=== PATIENT | male | born 1995 | race Caucasian/White ===

== ENCOUNTER 2019-03-31 13:55 | Emergency (ER) | payer OTHER, BC ==
[2019-03-31] MEDS ORDERED: Diphtheria,Pertussis(Acell),Tetanus Vaccine 0.5 ML Syringe IM ONE (14:14)
--- NOTE | 2019-03-31 14:16 | EDM.PDOC ---
ED HPI GENERAL MEDICAL PROBLEM - General Chief Complaint: Upper Extremity Injury/Pain Stated Complaint: RT FINGER INJURY Time Seen by Provider: 03/31/19 13:57 Source of Information: Reports: Patient History Limitations: Reports: No Limitations - History of Present Illness INITIAL COMMENTS - FREE TEXT/NARRATIVE: History of present illness: []Patient crushed his right ring and small finger tips. He is not up-to-date with tetanus. Review of systems: As per history of present illness and below otherwise all systems reviewed and negative. Past medical history: As per history of present illness and as reviewed below otherwise noncontributory. Surgical history: As per history of present illness and as reviewed below otherwise noncontributory. Social history: No reported history of drug or alcohol abuse. Family history: As per history of present illness and as reviewed below otherwise noncontributory. Physical exam: General: Well developed, well nourished in NAD HEENT: Atraumatic, normocephalic, pupils reactive, negative for conjunctival pallor or scleral icterus, mucous membranes moist, throat clear, neck supple, nontender, trachea midline. Lungs: Clear to auscultation, breath sounds equal bilaterally, chest nontender. Heart: S1S2, regular, negative for clicks, rubs, or JVD. Abdomen: NABS, Soft, nondistended, nontender. Negative for masses or hepatosplenomegaly. Negative for costovertebral tenderness. Pelvis: Stable nontender. Genitourinary: Deferred. Rectal: Deferred. Extremities: Right ring and small finger tips with distal small crush injuries with no active bleeding, negative for cords or calf pain. Neurovascular unremarkable. Neuro: Awake, alert, oriented. Cranial nerves II through XII unremarkable. Cerebellum unremarkable. Motor and sensory unremarkable throughout. Exam nonfocal. Skin:warm and dry Diagnostics: X-ray right hand no fractures Therapeutics: he declined pain meds ED Course: Stable Impression: Crush injury right hand small and ring fingertips Prescriptions: None Plan: Follow-up with primary care as needed wound clean Tylenol Motrin for pain. Definitive disposition and diagnosis as appropriate pending reevaluation and review of above. right hand Pain Score (Numeric/FACES): 3 - Related Data Allergies Allergy/AdvReac Type Severity Reaction Status Date / Time No Known Allergies Allergy Verified 06/28/15 08:07 Home Meds: Home Meds . [No Known Home Meds] 03/31/19 [History] Review of Systems - Review of Systems Review Of Systems: ROS reveals no pertinent complaints other than HPI. ED EXAM, GENERAL - Physical Exam Exam: See Below (See history of present illness) Course - Vital Signs Last Recorded V/S: Last Vital Signs Temp 96.7 F 03/31/19 14:12 Pulse 77 03/31/19 14:12 Resp 18 03/31/19 14:12 BP 125/68 03/31/19 14:12 Pulse Ox 97 03/31/19 14:12 - Orders/Labs/Meds Orders: Active Orders 24 hr Category Date Time Status Vaccines to be Administered [RC] PER UNIT ROUTINE Care 03/31/19 14:14 Active Hand Comp Min 3V Rt [CR] Stat Exams 03/31/19 14:13 Taken Meds: Medications Discontinued Medications Generic Name Dose Route Start Last Admin Trade Name Freq PRN Reason Stop Dose Admin Diphtheria/Tetanus/Acell Pertussis 0.5 ml 03/31/19 14:14 Adacel IM 03/31/19 14:15 .ONCE ONE Departure - Departure Time of Disposition: 14:31 Disposition: Home, Self-Care 01 Condition: Good Clinical Impression: Hand crush injury Qualifiers: Encounter type: initial encounter Laterality: right Qualified Code(s): S67.21XA - Crushing injury of right hand, initial encounter - Discharge Information *PRESCRIPTION DRUG MONITORING PROGRAM REVIEWED*: No *COPY OF PRESCRIPTION DRUG MONITORING REPORT IN PATIENT KAMILA: No Referrals: PCP,Unknown [Primary Care Provider] - Forms: ED Department Discharge Additional Instructions: The following information is given to patients seen in the emergency department who are being discharged to home. This information is to outline your options for follow-up care. We provide all patients seen in our emergency department with a follow-up referral. The need for follow-up, as well as the timing and circumstances, are variable depending upon the specifics of your emergency department visit. If you don't have a primary care physician on staff, we will provide you with a referral. We always advise you to contact your personal physician following an emergency department visit to inform them of the circumstance of the visit and for follow-up with them and/or the need for any referrals to a consulting specialist. The emergency department will also refer you to a specialist when appropriate. This referral assures that you have the opportunity for follow-up care with a specialist. All of these measure are taken in an effort to provide you with optimal care, which includes your follow-up. Under all circumstances we always encourage you to contact your private physician who remains a resource for coordinating your care. When calling for follow-up care, please make the office aware that this follow-up is from your recent emergency room visit. If for any reason you are refused follow-up, please contact the [facility] Emergency Department at and asked to speak to the emergency department charge nurse. Keep wound clean, ibuprofen or Tylenol for pain, follow-up with primary care and her hand surgery if needed [facility] [address] [place] [address] PH:[phone] fax:[phone] - My Orders Last 24 Hours: My Active Orders 03/31/19 14:13 Hand Comp Min 3V Rt [CR] Stat 03/31/19 14:14 Vaccines to be Administered [RC] PER UNIT ROUTINE - Assessment/Plan Last 24 Hours: My Active Orders 03/31/19 14:13 Hand Comp Min 3V Rt [CR] Stat 03/31/19 14:14 Vaccines to be Administered [RC] PER UNIT ROUTINE
--- NOTE | 2019-03-31 14:59 | CR ---
EXAMINATION: Right hand HISTORY: Compression COMPARISON: None TECHNIQUE: 3 views FINDINGS/IMPRESSION: There is no acute osseous abnormality, dislocation, or fracture. Bone mineralization and joint spaces are preserved. Mild soft tissue swelling noted along the lateral aspect of the hand.
== END 2019-03-31 14:59 | disposition home or self-care (01) ==
LOC: MW.ED 13:55
DX: S67.21XA Crushing injury of right hand, initial encounter (principal); Z23 Encounter for immunization; W23.1XXA Caught, crushed, jammed, or pinched between stationary objects, initial encounter
CPT/HCPCS: 73130-26-RT; 73130-RT; 90471; 90715; 99282; 99283-25

== ENCOUNTER 2019-04-23 10:14 | Day surgery (SDC) | payer BC ==
[~2019-04-23 10:14] MED LIST: Lactated Ringers 1,000 ML IV SCH
--- NOTE | 2019-04-23 11:07 | PCM.PREANE ---
Preanesthetic Assessment - Anesthesia/Transfusion/Family Hx Anesthesia History: Prior Anesthesia Without Reaction Family History of Anesthesia Reaction: No Transfusion History: No Prior Transfusion(s) Intubation History: Unknown - Review of Systems General: No Symptoms Pulmonary: No Symptoms Cardiovascular: No Symptoms Gastrointestinal: Other (major acid reflux) Neurological: No Symptoms Other: Reports: None - Physical Assessment Height: 6 ft Weight: 106.594 kg ASA Class: 2 Mental Status: Alert & Oriented x3 Airway Class: Mallampati = 2 Dentition: Reports: Normal Dentition, [place](s) (x2 upper front) Thyro-Mental Finger Breadths: 3 Mouth Opening Finger Breadths: 3 ROM/Head Extension: Full Lungs: Clear to Auscultation, Normal Respiratory Effort Cardiovascular: Regular Rate, Regular Rhythm - Allergies Allergies/Adverse Reactions: Allergies Allergy/AdvReac Type Severity Reaction Status Date / Time No Known Allergies Allergy Verified 04/21/19 08:02 - Blood Blood Available: No - Anesthesia Plan Pre-Op Medication Ordered: None - Acknowledgements Anesthesia Type Planned: MAC Pt an Appropriate Candidate for the Planned Anesthesia: Yes Alternatives and Risks of Anesthesia Discussed w Pt/Guardian: Yes Pt/Guardian Understands and Agrees with Anesthesia Plan: Yes PreAnesthesia Questionnaire HEENT History: Reports: None Cardiovascular History: Reports: None Respiratory History: Reports: None Gastrointestinal History: Reports: GERD Genitourinary History: Reports: None Musculoskeletal History: Reports: None Neurological History: Reports: Concussion Psychiatric History: Reports: None Endocrine/Metabolic History: Reports: Obesity/BMI 30+ Hematologic History: Reports: None, Other (See Below) (recent thrombocytopenia 2 -3 weeks ago) Immunologic History: Reports: None Oncologic (Cancer) History: Reports: None Dermatologic History: Reports: None - Past Surgical History Head Surgeries/Procedures: Reports: None HEENT Surgical History: Reports: Oral Surgery, Tonsillectomy Cardiovascular Surgical History: Reports: None Respiratory Surgical History: Reports: None GI Surgical History: Reports: None Male Surgical History: Reports: None Endocrine Surgical History: Reports: None Neurological Surgical History: Reports: None Musculoskeletal Surgical History: Reports: None Oncologic Surgical History: Reports: None Dermatological Surgical History: Reports: None - SUBSTANCE USE Smoking Status *Q: Never Smoker Tobacco Use Within Last Twelve Months: No Recreational Drug Use History: No - HOME MEDS Home Medications: Home Meds Pantoprazole Sodium 40 mg PO DAILY 04/21/19 [History] - CURRENT (IN HOUSE) MEDS Current Meds: Current Medications Lactated Ringer's (Ringers, Lactated) 1,000 mls @ 125 mls/hr IV ASDIRECTED [facility] Last Admin: 04/23/19 10:48 Dose: 125 mls/hr
[2019-04-23] MEDS ORDERED: Midazolam 1 MG/ML 2 ML SDV ONE (12:06)
[2019-04-23] MEDS ORDERED: Propofol 200 MG/20 ML SDV ONE (12:06)
[2019-04-23] MEDS ORDERED: fentaNYL 100 MCG/2 ML SDV ONE (12:06)
--- NOTE | 2019-04-23 12:46 | PCM.OPNOTE ---
- General Post-Op/Procedure Note Date of Surgery/Procedure: 04/23/19 Operative Procedure(s): egd w bx Findings: see dict [id number] Pre Op Diagnosis: gerd Post-Op Diagnosis: Same Anesthesia Technique: Moderate Sedation Primary Surgeon: Micheal Deleon Pathology: sent Complications: None Condition: Good
--- NOTE | 2019-04-23 16:54 | OR ---
SURGEON: Micheal Deleon MD DATE OF PROCEDURE: 04/23/2019 PREOPERATIVE DIAGNOSIS: Gastroesophageal reflux disease. POSTOPERATIVE DIAGNOSIS: Gastroesophageal reflux disease. PROCEDURE PERFORMED: EGD with biopsy. PRIMARY SURGEON: Micheal Deleon MD. PROCEDURE IN DETAIL: EGD: The patient was taken to the endoscopy room, and with the SAUSAGE MACHINE OPERATOR, Diprivan was administered. A well-lubricated EGD scope was gently inserted through the oropharynx, down the esophagus, passing through the gastroesophageal junction, into the stomach. The mucosa was examined upon the passage. Any etiology will be noted. Once in the stomach, we continued to advance to the distal antrum, passed through the pylorus into the second portion of the duodenum. Again, the mucosa was examined for any abnormality and etiology. The scope was then retrieved back to the stomach and then retroflexed to look at the fundus of the stomach. If a biopsy was indicated, we will biopsy the antrum, body, and gastroesophageal junction. The air will be sucked out while the scope is retrieved to reduce the patient's discomfort. The patient tolerated the procedure well. There were no intraoperative complications. Dr. Deleon was present through the whole procedure. Prior to surgery, a time-out had been called, the patient identified, procedure identified and antibiotic administered. FINDINGS: 1. The patient is easily sedated with SAUSAGE MACHINE OPERATOR and Diprivan. The patient is soundly snoring. 2. The patient's oropharynx and proximal esophagus totally normal in appearance and no stricture, inflammation, ulceration, bleeding. Distal esophagus at GE junction at 40 shows significant salmon color change with skipped lesion and flame-like change consistent with significant acid reflux. Stomach rugae is normal in appearance. Antrum is a little bit inflamed. Duodenum was grossly normal. Scope retrieved back to the stomach, retroflexed to look at the fundus of stomach, there was no hiatal hernia. Biopsy done at antrum, body, GE junction at 40, and sucked out the gas while scope pulling out. The patient probably would benefit from repeat EGD 6 months from today and after starting on PPI. STEVEN / STEFANIE /[id number]
== END 2019-04-23 13:13 | disposition home or self-care (01) ==
LOC: MW.SDS 10:14
PROVIDERS: ATTEND Surgery
DX: K21.9 Gastro-esophageal reflux disease without esophagitis (principal); K29.50 Unspecified chronic gastritis without bleeding; R61 Generalized hyperhidrosis; Z79.899 Other long term (current) drug therapy
CPT/HCPCS: 43239; J2001; J2250; J2704; J3010; J7120

== ENCOUNTER 2019-10-08 08:40 | Day surgery (SDC) | payer BC ==
--- NOTE | 2019-10-08 09:28 | PCM.PREANE ---
Preanesthetic Assessment - Anesthesia/Transfusion/Family Hx Anesthesia History: Prior Anesthesia Without Reaction Family History of Anesthesia Reaction: No Transfusion History: No Prior Transfusion(s) Intubation History: Unknown - Review of Systems General: No Symptoms Pulmonary: No Symptoms Cardiovascular: No Symptoms Gastrointestinal: No Symptoms Neurological: No Symptoms Other: Reports: None - Physical Assessment Height: 6 ft Weight: 107.955 kg ASA Class: 2 Mental Status: Alert & Oriented x3 Airway Class: Mallampati = 2 Dentition: Reports: Normal Dentition, [place](s) (x2 upper front) Thyro-Mental Finger Breadths: 3 Mouth Opening Finger Breadths: 2 (small mouth) ROM/Head Extension: Full Lungs: Clear to Auscultation, Normal Respiratory Effort Cardiovascular: Regular Rate, Regular Rhythm - Allergies Allergies/Adverse Reactions: Allergies Allergy/AdvReac Type Severity Reaction Status Date / Time No Known Allergies Allergy Verified 04/21/19 08:02 - Blood Blood Available: No - Anesthesia Plan Pre-Op Medication Ordered: None - Acknowledgements Anesthesia Type Planned: MAC Pt an Appropriate Candidate for the Planned Anesthesia: Yes Alternatives and Risks of Anesthesia Discussed w Pt/Guardian: Yes Pt/Guardian Understands and Agrees with Anesthesia Plan: Yes PreAnesthesia Questionnaire HEENT History: Reports: None Cardiovascular History: Reports: None Respiratory History: Reports: None Gastrointestinal History: Reports: GERD, Other (See Below) Other Gastrointestinal History: esophogitis Genitourinary History: Reports: None Musculoskeletal History: Reports: None Neurological History: Reports: Concussion Psychiatric History: Reports: None Endocrine/Metabolic History: Reports: Obesity/BMI 30+ (BMI 32.3) Hematologic History: Reports: None Immunologic History: Reports: None Oncologic (Cancer) History: Reports: None Dermatologic History: Reports: None - Past Surgical History Head Surgeries/Procedures: Reports: None HEENT Surgical History: Reports: Oral Surgery, Tonsillectomy Cardiovascular Surgical History: Reports: None Respiratory Surgical History: Reports: None GI Surgical History: Reports: EGD Male Surgical History: Reports: None Endocrine Surgical History: Reports: None Neurological Surgical History: Reports: None Musculoskeletal Surgical History: Reports: None Oncologic Surgical History: Reports: None Dermatological Surgical History: Reports: None - SUBSTANCE USE Smoking Status *Q: Never Smoker - HOME MEDS Home Medications: Home Meds Omeprazole 20 mg PO DAILY 10/05/19 [History] - CURRENT (IN HOUSE) MEDS Current Meds: Current Medications Lactated Ringer's (Ringers, Lactated) 1,000 mls @ 125 mls/hr IV ASDIRECTED ANGELIQUE
[2019-10-08] MEDS ORDERED: Propofol 200 MG/20 ML SDV ONE (09:43)
[2019-10-08] MEDS ORDERED: Midazolam 1 MG/ML 2 ML SDV ONE (09:44)
[2019-10-08] MEDS ORDERED: Lidocaine 2% 5 ML SDV ONE (09:45)
[2019-10-08] MEDS ORDERED: Glycopyrrolate 0.2 MG/ML SDV ONE (09:45)
--- NOTE | 2019-10-08 10:25 | PCM.OPNOTE ---
- General Post-Op/Procedure Note Date of Surgery/Procedure: 10/08/19 Operative Procedure(s): egd w bx Findings: see dict [id number] Pre Op Diagnosis: esohpagitis Post-Op Diagnosis: Same Anesthesia Technique: Moderate Sedation Primary Surgeon: Micheal Deleon Pathology: sent Complications: None Condition: Good
--- NOTE | 2019-10-08 10:28 | PCM.POSTAN ---
POST ANESTHESIA ASSESSMENT - MENTAL STATUS Mental Status: Alert, Oriented - VITAL SIGNS Vital Signs: Last Vital Signs Temp 36.8 C 10/08/19 09:10 Pulse 75 10/08/19 10:26 Resp 13 10/08/19 10:26 BP 127/71 10/08/19 10:26 Pulse Ox 95 10/08/19 10:26 - RESPIRATORY Respiratory Status: Respiratory Rate WNL, Airway Patent, O2 Saturation Stable - CARDIOVASCULAR CV Status: Pulse Rate WNL, Blood Pressure Stable - GASTROINTESTINAL GI Status: No Symptoms - PAIN Pain Score: 0 - POST OP HYDRATION Hydration Status: Adequate & Stable - OBSERVATIONS Free Text/Narrative:: No anesthesia problems
--- NOTE | 2019-10-08 11:02 | PCM48HPAN ---
Post Anesthesia Note - EVALUATION WITHIN 48HRS OF ANESTHETIC Vital Signs in Normal Range: Yes Patient Participated in Evaluation: Yes Respiratory Function Stable: Yes Airway Patent: Yes Cardiovascular Function Stable: Yes Hydration Status Stable: Yes Pain Control Satisfactory: Yes Nausea and Vomiting Control Satisfactory: Yes Mental Status Recovered: Yes Vital Signs: Last Vital Signs Temp 36.8 C 10/08/19 09:10 Pulse 75 10/08/19 10:26 Resp 13 10/08/19 10:26 BP 127/71 10/08/19 10:26 Pulse Ox 95 10/08/19 10:26 - COMMENTS/OBSERVATIONS Free Text/Narrative:: no anesthesia problems
--- NOTE | 2019-10-08 11:08 | OR ---
SURGEON: Micheal Deleon MD DATE OF PROCEDURE: 10/08/2019 PREOPERATIVE DIAGNOSIS: Previous history of esophagitis. POSTOPERATIVE DIAGNOSIS: Previous history of esophagitis. PROCEDURE PERFORMED: Esophagogastroduodenoscopy with biopsy. PRIMARY SURGEON: Micheal Deleon MD. COMPLICATIONS: None. FINDINGS: 1. The patient is easily sedated with METER/RELAY CRAFTSMAN and Diprivan, the patient is soundly snoring. 2. Oropharynx is free of disease. The proximal esophagus is free of disease and no stricture, inflammation, varicosity. Distal esophagus at GE junction at 40 continued to show significant salmon-colored change, but there is no ulceration. Observed is a little bit denuding of the GE junction at 40. Stomach rugae are normal in appearance. Antrum is normal. Duodenum is grossly normal. Retrieved back to look at the fundus of stomach, there is no hiatal hernia. Biopsy done at antrum, body, GE junction at 40, and sucked out the gas while scope pulling out. The patient tolerated the procedure well. DESCRIPTION OF PROCEDURE: EGD: The patient was taken to the endoscopy room, and with the METER/RELAY CRAFTSMAN, Diprivan was administered. A well-lubricated EGD scope was gently inserted through the oropharynx, down the esophagus, passing through the gastroesophageal junction, into the stomach. The mucosa was examined upon the passage. Any etiology will be noted. Once in the stomach, we continued to advance to the distal antrum, passed through the pylorus into the second portion of the duodenum. Again, the mucosa was examined for any abnormality and etiology. The scope was then retrieved back to the stomach and then retroflexed to look at the fundus of the stomach. If a biopsy was indicated, we will biopsy the antrum, body, and gastroesophageal junction. The air will be sucked out while the scope is retrieved to reduce the patient's discomfort. The patient tolerated the procedure well. There were no intraoperative complications. Dr. Deleon was present through the whole procedure. Prior to surgery, a time-out had been called, the patient identified, procedure identified and antibiotic administered. STEVEN / STEFANIE /[id number]
== END 2019-10-08 11:05 | disposition home or self-care (01) ==
LOC: MW.SDS 08:40
PROVIDERS: ATTEND Surgery
DX: K21.0 Gastro-esophageal reflux disease with esophagitis (principal); K29.50 Unspecified chronic gastritis without bleeding; D69.6 Thrombocytopenia, unspecified; Z87.891 Personal history of nicotine dependence; Z79.899 Other long term (current) drug therapy
CPT/HCPCS: 43239; J2001; J2250; J2704; J3490; J7120; 88305; 88312

== ENCOUNTER 2021-03-29 16:03 | Emergency (ER) | payer OTHER, BC ==
[2021-03-29] MEDS ORDERED: Diphtheria,Pertussis(Acell),Tetanus Vaccine 0.5 ML Syringe IM ONE (16:19)
[2021-03-29] MEDS ORDERED: Ketorolac 15 MG/ML SDV IM ONE (16:19)
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
[2021-03-29] MEDS ORDERED: Octyl 2-Cyanoacrylate 1 Tube TOP ONE (18:00)
== END 2021-03-29 18:23 | disposition home or self-care (01) ==
LOC: MW.ED 16:03
DX: S21.131A Puncture wound without foreign body of right front wall of thorax without penetration into thoracic cavity, initial encounter (principal); E66.9 Obesity, unspecified; Z68.31 Body mass index [BMI] 31.0-31.9, adult; Z23 Encounter for immunization; W26.8XXA Contact with other sharp object(s), not elsewhere classified, initial encounter
CPT/HCPCS: 12001; 71046; 90471; 90715; 99283; A9270